=== PATIENT | female | born 1940 | race Caucasian/White ===

== ENCOUNTER → 2017-10-28 | Outpatient (CLI) | payer OTHER ==
[~2017-10-28] MED LIST: AMLO1CAP12 PO; ATOR10 PO; CLOP75TA32 PO; LEVO88TA7 PO; METF10004 PO; NITR0.4T SL; OMEP20CA10 PO; TERA5CAP4 PO
== END | disposition home or self-care (01) ==
LOC: RAH 09:44
PROVIDERS: ATTEND Family Medicine
DX: Z12.31 Encounter for screening mammogram for malignant neoplasm of breast (principal)
CPT/HCPCS: 77067

== ENCOUNTER → 2018-11-06 | Outpatient (CLI) | payer OTHER ==
[~2018-11-06] MED LIST changes: +METF-446 PO; -METF10004 PO
== END | disposition home or self-care (01) ==
LOC: RAH 14:02
PROVIDERS: ATTEND Family Medicine
DX: Z12.31 Encounter for screening mammogram for malignant neoplasm of breast (principal)
CPT/HCPCS: 77067

== ENCOUNTER → 2019-01-24 | Outpatient (CLI) | payer OTHER | END | disposition home or self-care (01) | LOC: RAH 14:53 | PROVIDERS: ATTEND Family Medicine | DX: R22.1 Localized swelling, mass and lump, neck (principal) | CPT/HCPCS: 76536 ==

== ENCOUNTER → 2019-02-08 | Outpatient (CLI) | payer OTHER ==
--- NOTE | 2019-02-08 13:09 | NUR ---
MBSS COMPLETE. -S/S OF ASPIRATION. RECOMMEND REGULAR, THIN LIQUID DIET; PILLS WHOLE WITH LIQUIDS. PATIENT INFORMATION: Pt IS A 78 Y.O. FEMALE REFERRED FOR AN MBSS SECONDARY TO C/O CHOKING AT NIGHT WITH DIFFICULTY CATCHING HER BREATH. Pt AAOX3 AND SERVED THE PRIMARY INFORMANT FOR MEDICAL AND SOCIAL HISTORY. PT STATES THAT SHE FEELS A LUMP IN HER THROAT AND SHE IS NOT ABLE TO BREATH. 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 Pt WITH MILD HOARSENESS. 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 MBSS INTERPRETATION: SWALLOW FUNCTION AND EFFICIENCY WITHIN FUNCTIONAL LIMITS. ORAL MOTOR STRENGTH, COORDINATION, AND ROM WITHIN FUNCTIONAL LIMITS. LARYNGEAL ELEVATION/EXCURSION STRONG WITH TIMELY PHARYNGEAL RESPONSE. NO OVERT SIGNS OR SYMPTOMS OF ASPIRATION PRESENT DURING MBSS. OBSERVATIONS: MILD/MINIMAL PROTRUSION AT C5 (NOT INTERFERING WITH THE SWALLOW). A-P VIEW: RESIDUE OF BOLUS IN UPPER 1/3 OF ESOPHAGUS. RECOMMENDATIONS: 1. REGULAR TEXTURE, THIN LIQUID DIET; PILLS WHOLE WITH LIQUIDS. 2. COMPENSATORY STRATEGIES (PROPHYLAXIS): *SEATED AT 90 DEGREE ANGLE *REMAIN UPRIGHT 30 MINUTES AFTER MEAL TIMES 3. GI CONSULT SECONDARY TO RESIDUE IN ESOPHAGUS. G-CODES SWALLOWING: [id number] Addendum: 02/08/19 at 1321 by JEFFREY NUNEZ [facility] Amended: Links added.
== END | disposition home or self-care (01) ==
LOC: RAH 09:24
PROVIDERS: ATTEND Otolaryngology Plastic Surgery within the Head & Neck
DX: J38.00 Paralysis of vocal cords and larynx, unspecified (principal); R13.10 Dysphagia, unspecified; I10 Essential (primary) hypertension; E11.9 Type 2 diabetes mellitus without complications; E78.5 Hyperlipidemia, unspecified
CPT/HCPCS: 74230; 92611; G8996; G8997; G8998

== ENCOUNTER 2020-01-03 11:46 | Emergency (ER) | payer OTHER ==
[~2020-01-03 11:46] MED LIST changes: +AMLO-104 PO; -AMLO1CAP12 PO; -OMEP20CA10 PO; +OMEP20CA12 PO
[2020-01-03] MEDS ORDERED: ASPIRIN 325 MG TABLET ONE (11:54)
[2020-01-03 12:00] LABS: EOSINOPHILS % (AUTO) 1.5 % (0.0-8.0); HEMATOCRIT 39.7 % (36-48); LYMPHOCYTES % (AUTO) 22.8 % (21.0-51.0); MEAN CORPUSCULAR HEMOGLOBIN 28.5 pg (27.0-33.0); MEAN CORPUSCULAR HGB CONC 33.5 g/dL (32.0-36.0); MEAN CORPUSCULAR VOLUME 85.2 fL (79-99); MONOCYTES % (AUTO) 7.3 % (3.0-13.0); NEUTROPHILS % (AUTO) 67.2 % (40.0-77.0); PLATELET COUNT (AUTO) 318 K/uL (130-400); RED BLOOD CELL COUNT(AUTO) 4.66 MIL/uL (4.00-5.50); RED CELL DISTRIBUTION WIDTH 13.2 % (11.0-15.5); WHITE BLOOD COUNT (AUTO) 8.7 K/uL (4.8-10.8)
[2020-01-03] MEDS ORDERED: LORAZEPAM 2 MG/ML 1 ML VIAL ONE (12:16)
[2020-01-03 12:22] LABS: INR 0.92 (0.85-1.15); PARTIAL THROMBOPLASTIN TIME 27.1 SEC (26.3-35.5)
[2020-01-03 12:25] LABS: B-TYPE NATRIURETIC PEPTIDE 30 pg/mL (0-100); CREATININE 0.7 mg/dL (0.5-1.5); POTASSIUM 3.3 mmol/L (3.5-5.1)
[2020-01-03 12:30] LABS: ALBUMIN 3.9 g/dL (3.5-5.0); BILIRUBIN,TOTAL 0.4 mg/dL (0.2-1.0); TOTAL PROTEIN, SERUM 7.2 g/dL (6.0-8.3)
[2020-01-03 13:06] LABS: APPEARANCE,URINE Clear (CLEAR); BILIRUBIN,URINE Negative (NEGATIVE); COLOR,URINE Yellow (YELLOW); GLUCOSE, URINE (UA) Negative (NEGATIVE); KETONES,URINE Negative (NEGATIVE); LEUKOCYTE ESTERASE ,URINE Negative (NEGATIVE); NITRATE,URINE Negative (NEGATIVE); OCCULT BLOOD,URINE Negative (NEGATIVE); PROTEIN,URINE Negative (NEGATIVE); UROBILINOGEN,URINE 0.2 mg/dL (0.2-1.0)
[2020-01-03] MEDS ORDERED: ACETAMINOPHEN-CODEINE 300/30MG TAB ONE (15:20)
== END 2020-01-03 15:35 | disposition home or self-care (01) ==
LOC: EDH 11:46
DX: R07.89 Other chest pain (principal); E11.9 Type 2 diabetes mellitus without complications; I10 Essential (primary) hypertension
CPT/HCPCS: 36415; 71045; 80053; 81003; 82550; 83880; 84484 ×2; 85025; 85610; 85730; 93005 ×2; 96374; 99285; J2060

== ENCOUNTER → 2020-12-18 | Outpatient (CLI) | payer OTHER | END | disposition home or self-care (01) | LOC: RAH 10:12 | PROVIDERS: ATTEND Family Medicine | DX: Z12.31 Encounter for screening mammogram for malignant neoplasm of breast (principal) | CPT/HCPCS: 77067 ==

== ENCOUNTER 2021-12-16 15:01 | Emergency (ER) | payer OTHER ==
[~2021-12-16] VITALS: Ht 157.5 cm; Wt 65.3 kg
[2021-12-16] MEDS ORDERED: 0.9% NACL 500ML IV.SOLN 500 ML IV ONE ×2 (15:30→15:36)
[2021-12-16] MEDS ORDERED: ONDANSETRON 4MG INJ IVP ONE (15:30)
[2021-12-16] MEDS ORDERED: CALCIUM GLUC 1GM/10ML VIAL IV PRN (15:30)
[2021-12-16 15:45] LABS: BASOPHILS % (AUTO) 0.6 % (0.0-5.0); EOSINOPHILS % (AUTO) 0.4 % (0.0-8.0); HEMATOCRIT 39.7 % (36-48); LYMPHOCYTES % (AUTO) 10.8 % (21.0-51.0); MEAN CORPUSCULAR HEMOGLOBIN 29.5 pg (27.0-33.0); MEAN CORPUSCULAR VOLUME 86.7 fL (79-99); MONOCYTES % (AUTO) 5.9 % (3.0-13.0); NEUTROPHILS % (AUTO) 81.8 % (40.0-77.0); PLATELET COUNT (AUTO) 245 K/uL (130-400); RED BLOOD CELL COUNT(AUTO) 4.58 MIL/uL (4.00-5.50); RED CELL DISTRIBUTION WIDTH 12.8 % (11.0-15.5)
[2021-12-16] MEDS ORDERED: 0.9%NACL 50ML 50 ML IV ONE ×2 (15:45→15:49)
[2021-12-16] MEDS ORDERED: CALCIUM GLUC 1GM/10ML VIAL ONE (15:45)
[2021-12-16 15:58] LABS: CREATININE 0.7 mg/dL (0.5-1.5); POTASSIUM 3.5 mmol/L (3.5-5.1)
[2021-12-16 16:05] LABS: ALBUMIN 3.6 g/dL (3.5-5.0); BILIRUBIN,TOTAL 0.4 mg/dL (0.2-1.0); MAGNESIUM 1.5 mg/dL (1.80-2.40); TOTAL PROTEIN, SERUM 6.6 g/dL (6.0-8.3)
[2021-12-16 16:28] LABS: B-TYPE NATRIURETIC PEPTIDE 42 pg/mL (0-100)
[2021-12-16] MEDS ORDERED: MAGNESIUM 2GM PREMIX 50ML 50 ML IV SCH (16:30)
[2021-12-16] MEDS ORDERED: ONDANSETRON 4MG INJ ONE (17:00)
[2021-12-16 19:39] VITALS: BP 111/66
== END 2021-12-16 19:43 | disposition home or self-care (01) ==
LOC: EDH 15:01
DX: I95.1 Orthostatic hypotension (principal); T46.1X1A Poisoning by calcium-channel blockers, accidental (unintentional), initial encounter; R42 Dizziness and giddiness; E11.9 Type 2 diabetes mellitus without complications; Z79.899 Other long term (current) drug therapy; Z79.84 Long term (current) use of oral hypoglycemic drugs; Z98.890 Other specified postprocedural states; Y92.89 Other specified places as the place of occurrence of the external cause
CPT/HCPCS: 36415; 80053; 83735; 83880; 84484; 85025; 93005; 96361; 96365; 96366; 96375; 99285; J0610; J2405; J3475; J7040

== ENCOUNTER → 2021-12-18 | Outpatient (CLI) | payer OTHER ==
[~2021-12-18] MED LIST changes: +REGADENOSON 0.4 MG/5 ML PF SYG IVP SCH
== END | disposition home or self-care (01) ==
LOC: SHCH 08:07
PROVIDERS: ATTEND Internal Medicine Cardiovascular Disease
DX: I10 Essential (primary) hypertension (principal)
CPT/HCPCS: 78452; 93017; 96374; A9500 ×2; J2785

== ENCOUNTER → 2022-02-22 | Outpatient (CLI) | payer OTHER ==
[~2022-02-22] MED LIST changes: -REGADENOSON 0.4 MG/5 ML PF SYG IVP SCH
== END | disposition home or self-care (01) ==
LOC: RAH 14:02
PROVIDERS: ATTEND Family Medicine
DX: Z12.31 Encounter for screening mammogram for malignant neoplasm of breast (principal)
CPT/HCPCS: 77067

== ENCOUNTER → 2022-04-06 | Outpatient (CLI) | payer OTHER ==
[2022-04-06 08:33] LABS: INR 0.93 (0.85-1.15); PROTHROMBIN TIME 9.9 SEC (9.6-11.6)
[2022-04-06 08:35] LABS: PARTIAL THROMBOPLASTIN TIME 27.7 SEC (26.3-35.5)
== END | disposition home or self-care (01) ==
LOC: RAH 07:54
PROVIDERS: ATTEND Family Medicine
DX: C50.811 Malignant neoplasm of overlapping sites of right female breast (principal); Z79.01 Long term (current) use of anticoagulants
CPT/HCPCS: 19083; 85610; 85730; 36415; 88305; 88360; A4215 ×3; 88341; 88342

== ENCOUNTER → 2023-05-06 | Outpatient (CLI) | payer OTHER | END | disposition home or self-care (01) | LOC: RAH 13:39 | PROVIDERS: ATTEND Internal Medicine | DX: C50.111 Malignant neoplasm of central portion of right female breast (principal) | CPT/HCPCS: 76641 ==